=== PATIENT | male | born 1990 | race Hispanic/Latino ===

== ENCOUNTER 2024-06-14 18:15 | Emergency (ER) | payer OTHER ==
[~2024-06-14] VITALS: Ht 170.2 cm; Wt 81.6 kg
[2024-06-14] VITALS (26 sets, daily range): BP systolic 88–127; BP diastolic 44–78
[2024-06-14] MEDS ORDERED: SODIUM CHLORIDE 0.9% 1,000 ML IV ONE ×3 (18:20→20:15)
[2024-06-14] MEDS ORDERED: LORazepam 2 MG/ML ONE (18:25)
[2024-06-14] MEDS ORDERED: ACETAMINOPHEN 1,000 MG/100 ML VIAL IV ONE (18:25)
[2024-06-14] MEDS ORDERED: SODIUM CHLORIDE 0.9% 1,000 ML BAG IV ONE (18:30)
[2024-06-14 18:37] LABS: BASO% 0.2 % (0-3); EOS% 0.3 % (0-8); HEMATOCRIT 50.4 % (39.0-50.0); HEMOGLOBIN 16.7 g/dl (14.0-18.0); IMMATURE GRANULOCYTES 3.3 % (0.0-5.0); LYMPH% 17.7 % (15-41); MEAN CELL VOLUME 86.7 fL CALC (80.0-100.0); MEAN CORPUSCULAR HGB 28.7 pG CALC (26.0-32.0); MEAN CORPUSCULAR HGB CONC 33.1 g/dL CAL (32.0-36.0); MONO% 4.3 % (2-13); NEUT# 9.79 thou/uL (1.82-7.42); NEUT% 74.2 % (42-76); RED BLOOD COUNT 5.81 mill/uL (4.70-6.10); RED CELL DISTRI WIDTH 13.5 % (11.5-15.5)
[2024-06-14] MEDS ORDERED: ONDANSETRON HCl 4 MG/2 ML SDV IV ONE (18:40)
[2024-06-14 18:53] LABS: INTERNATIONAL NORMALIZED RATIO 1.2 RATIO (0.7-1.3)
[2024-06-14 18:55] LABS: PROTHROMBIN TIME 11.2 SECONDS (9.0-12.5)
[2024-06-14 18:57] LABS: ALBUMIN 5.4 g/dL (3.2-5.0); CREATININE 3.2 mg/dL (0.7-1.3); TOTAL PROTEIN 9.7 g/dL (6.3-8.2)
[2024-06-14 19:28] LABS: URINE BLOOD DIPSTICK Negative (NEGATIVE); URINE GLUCOSE - DIPSTICK Negative (NEGATIVE); URINE KETONE 15 mg/dL (NEGATIVE); URINE LEUK ESTERASE Negative (NEGATIVE); URINE NITRITE - DIPSTICK Negative (Negative); URINE PROTEIN - DIPSTICK 30 mg/dL (NEG-TRACE); URINE SPECIFIC GRAVITY >=1.030; URINE UROBILINOGEN - DIPSTICK 0.2 E.U./dL (0.2)
[2024-06-14 19:30] LABS: URINE COLOR Yellow; URINE RBC 0-2 RBC/hpf (0-5); URINE WBC 0-2 WBC/hpf (0-5)
[2024-06-14 19:53] LABS: MAGNESIUM 1.7 mg/dL (1.6-2.3)
== END 2024-06-14 22:00 | disposition short-term general hospital (02) | DRG 923 ==
LOC: ED 18:15
PROVIDERS: Family Medicine
PROC: 0T9B70Z Drainage of Bladder with Drainage Device, Via Natural or Artificial Opening (ICD-10-PCS; principal; 2024-06-14)
DX: T67.09XA Other heatstroke and sunstroke, initial encounter (principal); M62.82 Rhabdomyolysis; N17.9 Acute kidney failure, unspecified; R40.4 Transient alteration of awareness; R79.89 Other specified abnormal findings of blood chemistry; I95.9 Hypotension, unspecified; E66.9 Obesity, unspecified; X30.XXXA Exposure to excessive natural heat, initial encounter; Y99.0 Civilian activity done for income or pay; Y93.89 Activity, other specified; Y92.79 Other farm location as the place of occurrence of the external cause
CPT/HCPCS: J0131; J2060